=== PATIENT | female | born 1965 | race Caucasian/White ===

== ENCOUNTER → 2019-01-05 19:50 | Outpatient (CLI) | payer MEDICAID ==
[2019-01-05 20:44] LABS: BASOPHILS 0.4 % (0-2); HEMATOCRIT 27.2 % (36.0-48.0); HEMOGLOBIN 8.8 g/dL (12-16); IMMATURE GRANULOCYTES 0.5 % (0-5); LYMPHOCYTES 28.1 % (15-50); MCH 26.6 pg (26.0-34.0); MCHC 32.4 g/dL (31.0-37.0); MCV 82.2 fL (80.0-100.0); MEAN PLATELET VOLUME 8.9 fL (7.4-10.4); MONOCYTES 9.6 % (2-11); NEUTROPHILS 57.4 % (40-80); PLATELET COUNT 333 10x3/uL (130-400); RBC 3.31 10x6/uL (4.00-5.40); RDW 14.1 % (11.5-14.5); WBC 9.2 10x3/uL (4.8-10.8)
[2019-01-05 21:15] LABS: CREATININE - SERUM 0.4 mg/dL (0.6-1.3); VANCOMYCIN - TROUGH 10.2 ug/mL (10.0-20.0)
== END | disposition home or self-care (01) ==
LOC: D.LABREF 19:50
PROVIDERS: ATTEND Internal Medicine Infectious Disease
DX: T84.63XA Infection and inflammatory reaction due to internal fixation device of spine, initial encounter (principal)